=== PATIENT | female | born 1955 | race Caucasian/White ===

== ENCOUNTER 2017-09-15 16:28 | Emergency (ER) | payer BC ==
[~2017-09-15] VITALS: Ht 15.2 cm; Wt 60.8 kg
[~2017-09-15 16:28] MED LIST: AZEL137S NS; CELE-1 PO; CETI-176 PO; CHOL200074 PO; CITA-156 PO; LAN15 PO; MELO-205 PO; METF-407 PO; METF-410 PO; MOBIC; NOR25 PO; RANI-315 PO; SIMV-49 PO; VITA-175 PO
[2017-09-15] MEDS ORDERED: OMEP40CA48 PO (16:44)
[2017-09-15] MEDS ORDERED: METF-410 PO (16:45)
[2017-09-15] MEDS ORDERED: ASPIRIN 81 MG CHEW PO ONE (16:45)
[2017-09-15] MEDS ORDERED: MELO-149 PO (16:50)
[2017-09-15 16:55] LABS: PLATELET COUNT, AUTOMATED 292 K/uL (150-450)
--- NOTE | 2017-09-15 17:00 | ER Report ---
History and Physical Time Seen By MD: 16:40 Hx. of Stated Complaint: PT REPORTS A 5 MINUTE EPISODE OF EPIGASTRIC PAIN WITH DIAPHORESIS AND NAUSEA, WENT TO URGENT CARE AND THEY REPORT AN "ABNORMAL EKG" ACCORDING TO PT, CURRENTLY FEELS FINE HPI/ROS CHIEF COMPLAINT: Chest/abdominal pain HISTORY OF PRESENT ILLNESS: Patient is a 61-year-old female who presents the ED with complaint of chest/abdominal pain that she noticed about 3 hours ago. She states that this came on suddenly while she was getting food from a [employer] restaurant and she states she had it while she was driving to her son's house but then shortly after resolved. She states the entire episode lasted about 10- 15 minutes. She describes the pain as a sharp pain that did not radiate to her arms or jaw. She states that she did have some sweating and some nausea with this. She denies any vomiting, diarrhea, constipation. She denies any shortness of breath. She states that she does not have any history of heart or lung issues. She was seen at a local urgent care who advised her to go to the emergency room for further evaluation. REVIEW OF SYSTEMS: Constitutional: No fever, no chills. Eyes: No discharge. ENT: No sore throat. Cardiovascular: See history of present illness. No palpitations. Respiratory: See history of present illness. No cough. Gastrointestinal: See history of present illness. Genitourinary: No hematuria. Musculoskeletal: No back pain. Skin: No rashes. Neurological: No headache. Allergies: Coded Allergies: ampicillin (Verified Allergy, Intermediate, RASH, 07/30/17) Adhesive Bandage (Verified Allergy, Mild, RASH, 07/30/17) Uncoded Allergies: SOME PROBLEM WITH EPINEPHRINE (Adverse Reaction, Unknown, 10/30/13) Home Meds Active Scripts Azelastine Hcl (AZELASTINE HCL) 137 Mcg/0.137 Ml [place].pump, 2 SPRAYS NS BID for 30 Days, #1 BOT Prov:WILFRIDO CHAMPION JR, MD 07/29/17 Reported Medications Meloxicam (MOBIC) 7.5 Mg Tablet, PO QDAY 09/15/17 Metformin Hcl (METFORMIN HCL) 500 Mg Tablet, 1 TAB PO QDAY, TAB 09/15/17 Omeprazole (OMEPRAZOLE) 40 Mg Capsule.dr, 40 MG PO QDAY, CAP 09/15/17 Citalopram Hydrobromide (CELEXA) 20 Mg Tablet, 20 MG PO QDAY, #5 TAB 07/30/17 Meloxicam (MELOXICAM) 7.5 Mg Tablet, 7.5 MG PO QDAY 07/30/17 Cholecalciferol (Vitamin D3) (VITAMIN D-3) 2,000 Unit Capsule, 8000 UNIT PO DAILY, CAPSULE 07/30/17 Cetirizine Hcl (ZYRTEC) 10 Mg Tablet, 10 MG PO QDAY, TAB 07/30/17 Discontinued Reported Medications Simvastatin (SIMVASTATIN) 20 Mg Tablet, 20 MG PO HS, TAB 07/30/17 Metformin Hcl (METFORMIN HCL) 500 Mg Tablet, 1 TAB PO QDAY, TAB 07/30/17 Vitamin B Complex (B COMPLEX) 1 Each Tablet, 1 EACH PO DAILY 07/30/17 Reviewed Nurses Notes: Yes Old Medical Records Reviewed: Yes Hx Smoking: Yes Smoking Status: Former Smoker Constitutional Vital Sign - Last 24 Hours 09/15/17 09/15/17 09/15/17 09/15/17 16:28 16:33 16:33 16:43 Temp 98.9 Pulse ??? 82 76 Resp 18 9 B/P (MAP) 141/87 (105) 141/87 Pulse Ox 97 100 O2 Delivery Room Air 09/15/17 16:58 Pulse 71 Resp 15 Pulse Ox 96 Physical Exam General Appearance: The patient is alert, has no immediate need for airway protection and no signs of toxicity. Patient appears to be no acute distress. Eyes: Pupils equal and round no pallor or injection. ENT, Mouth: Mucous membranes are moist. Respiratory: There are no retractions, lungs are clear to auscultation. Cardiovascular: Regular rate and rhythm. Gastrointestinal: Abdomen is soft and non tender, no masses, bowel sounds normal. Skin: Warm and dry, no rashes. Musculoskeletal: Neck is supple non tender. Extremities are nontender, nonswollen and have full range of motion. DIFFERENTIAL DIAGNOSIS: After history and physical exam differential diagnosis was considered for chest pain including but not limited to myocardial ischemia, pericarditis pulmonary embolus, chest wall pain, pleural inflammation and pulmonary infectious causes. Medical Decision Making Data Points Result Diagram: 09/15/17 1639 09/15/17 1639 Laboratory Hematology Test 09/15/17 16:39 Red Blood Count 4.39 M/uL (4.17-5.56) Mean Corpuscular Volume 94.9 fL (80.0-96.0) Mean Corpuscular Hemoglobin 33.0 pg (26.0-33.0) Mean Corpuscular Hemoglobin Concent 34.8 g/dL (32.0-36.0) Red Cell Distribution Width 13.3 % (11.5-14.5) Mean Platelet Volume 9.0 fL (7.2-11.1) Neutrophils (%) (Auto) 75.3 % (39.4-72.5) Lymphocytes (%) (Auto) 19.6 % (17.6-49.6) Monocytes (%) (Auto) 4.4 % (4.1-12.4) Eosinophils (%) (Auto) 0.7 % (0.4-6.7) Basophils (%) (Auto) 0.0 % (0.3-1.4) Nucleated RBC Relative Count (auto) 0.0 /100WBC Neutrophils # (Auto) 6.3 K/uL (2.0-7.4) Lymphocytes # (Auto) 1.7 K/uL (1.3-3.6) Monocytes # (Auto) 0.4 K/uL (0.3-1.0) Eosinophils # (Auto) 0.1 K/uL (0.0-0.5) Basophils # (Auto) 0.0 K/uL (0.0-0.1) Nucleated RBC Absolute Count (auto) 0.00 K/uL Peripheral Blood Smear Yes Y/N Sodium Level 138 mmol/L (137-145) Potassium Level 3.8 mmol/L (3.5-5.0) Chloride Level 100 mmol/L (98-107) Carbon Dioxide Level 29 mmol/L (22-31) Blood Urea Nitrogen 16 mg/dl (7-18) Creatinine 0.80 mg/dl (0.52-1.04) Glomerular Filtration Rate Calc > 60.0 Random Glucose 103 mg/dl (75-110) Calcium Level 9.7 mg/dl (8.4-10.2) Total Bilirubin 0.7 mg/dl (0.2-1.3) Aspartate Amino Transf (AST/SGOT) 35 U/L (0-35) Alanine Aminotransferase (ALT/SGPT) 52 U/L (0-56) Alkaline Phosphatase 78 U/L (0-126) Troponin I < 0.012 ng/ml Total Protein 7.5 gm/dl (6.3-8.2) Albumin 4.6 g/dl (3.5-5.0) Lipase 139 U/L (23-300) Chemistry Test 09/15/17 16:39 White Blood Count 8.4 k/uL (4.5-11.0) Red Blood Count 4.39 M/uL (4.17-5.56) Hemoglobin 14.5 g/dL (12.0-16.0) Hematocrit 41.6 % (34.0-47.0) Mean Corpuscular Volume 94.9 fL (80.0-96.0) Mean Corpuscular Hemoglobin 33.0 pg (26.0-33.0) Mean Corpuscular Hemoglobin Concent 34.8 g/dL (32.0-36.0) Red Cell Distribution Width 13.3 % (11.5-14.5) Platelet Count 292 K/uL (150-450) Mean Platelet Volume 9.0 fL (7.2-11.1) Neutrophils (%) (Auto) 75.3 % (39.4-72.5) Lymphocytes (%) (Auto) 19.6 % (17.6-49.6) Monocytes (%) (Auto) 4.4 % (4.1-12.4) Eosinophils (%) (Auto) 0.7 % (0.4-6.7) Basophils (%) (Auto) 0.0 % (0.3-1.4) Nucleated RBC Relative Count (auto) 0.0 /100WBC Neutrophils # (Auto) 6.3 K/uL (2.0-7.4) Lymphocytes # (Auto) 1.7 K/uL (1.3-3.6) Monocytes # (Auto) 0.4 K/uL (0.3-1.0) Eosinophils # (Auto) 0.1 K/uL (0.0-0.5) Basophils # (Auto) 0.0 K/uL (0.0-0.1) Nucleated RBC Absolute Count (auto) 0.00 K/uL Peripheral Blood Smear Yes Y/N Glomerular Filtration Rate Calc > 60.0 Calcium Level 9.7 mg/dl (8.4-10.2) Total Bilirubin 0.7 mg/dl (0.2-1.3) Aspartate Amino Transf (AST/SGOT) 35 U/L (0-35) Alanine Aminotransferase (ALT/SGPT) 52 U/L (0-56) Alkaline Phosphatase 78 U/L (0-126) Troponin I < 0.012 ng/ml Total Protein 7.5 gm/dl (6.3-8.2) Albumin 4.6 g/dl (3.5-5.0) Lipase 139 U/L (23-300) EKG/Imaging EKG Interpretation 12 lead EKG: Rhythm: Normal sinus rhythm, right bundle branch block, rate 67 bpm QRS: normal ST segments: No acute ST changes identified. Compared EKG from 2004 and 2008 and patient appears to have a right bundle- branch pattern and these EKGs as well. Monitor Interpretation: Normal Sinus Rhythm Imaging CXR: IMPRESSION: Unchanged chest with no evidence of acute cardiopulmonary disease. Report Dictated By: Lee Aguilar MD at 09/15/2017 5:18 PM Report E-Signed By: Lee Aguilar MD at 09/15/2017 5:19 PM ED Course/Re-evaluation ED Course Will obtain labs, EKG, chest x-ray. 09/15/2017 5:52:10 pm - distal labs, EKG, chest x-ray with patient. Everything is essentially normal. Her EKG is essentially unchanged from her previous in 2008. Patient has been pain free throughout entire ER visit. Decision to Disposition Date: Sep 15, 2017 Decision to Disposition Time: 17:52 Depart Departure Latest Vital Signs Vital Signs Date Time Temp Pulse Resp B/P (MAP) Pulse Ox O2 Delivery O2 Flow Rate FiO2 09/15/17 16:58 71 15 96 09/15/17 16:33 98.9 141/87 Room Air Impression: Primary Impression: Epigastric pain Additional Impression: Chest pain Condition: Improved Disposition: HOME OR SELF-CARE Referrals: DUARTE AL PA-C (PCP) Patient Instructions: Chest Pain (ED), Epigastric Pain (ED) Additional Instructions: Stay well-hydrated. Follow-up with her primary care provider in 2-3 days. If having any worsening or concerning symptoms may return to the emergency department. Problem Qualifiers Additional Impression: Chest pain Chest pain type: unspecified Qualified Codes: R07.9 - Chest pain, unspecified BJORE,JESSICA R PA-C Sep 15, 2017 17:00
--- NOTE | 2017-09-15 17:02 | EKG ---
[place] [facility] [place]IENT NAME: FOUZIA ARREGUIN : [id number] MR: [id number] V: [id number] EXAM DATE: ORDERING PHYSICIAN: JESSICA WREN TECHNOLOGIST: Brent Grant Reason : Blood Pressure : / mmHG Vent. Rate : 067 BPM Atrial Rate : 067 BPM P-R Int : 174 ms QRS Dur : 122 ms QT Int : 404 ms P-R-T Axes : 074 073 054 degrees QTc Int : 426 ms Normal sinus rhythm Possible Left atrial enlargement Right bundle branch block Abnormal ECG No previous ECGs available Confirmed by ANGELINA REYES ([id number]) on 09/16/2017 6:42:09 AM Referred By: Confirmed By:ANGELINA REYES
--- NOTE | 2017-09-15 17:23 | RADIOLOGY IMAGING REPORT ---
FACILITY: [facility] PATIENT NAME: Jonah Carney : 1955 MR: [id number] V: [id number] EXAM DATE: ORDERING PHYSICIAN: JESSICA WREN TECHNOLOGIST: [place] [facility] [place] Patient: Jonah Carney : 1955 Visit/Account:[id number] Date of Sevice: 09/15/2017 Examination: CHEST SINGLE AP Comparison: 01/12/2015 History: Chest pain. Findings: Cardiac and hilar contour size is within normal limits. No consolidation, nodule, or peribr onchial inflammation. No pneumothorax, edema, or effusion. Osseous structures are intact. IMPRESSION: Unchanged chest with no evidence of acute cardiopulmonary disease. Report Dictated By: Lee Aguilar MD at 09/15/2017 5:18 PM Report E-Signed By: Lee Aguilar MD at 09/15/2017 5:19 PM WSN:[id number]
[2017-09-15 18:00] VITALS: BP 128/89
== END 2017-09-15 18:07 | disposition home or self-care (01) ==
LOC: ER 16:41
DX: R10.13 Epigastric pain (principal); R07.89 Other chest pain
CPT/HCPCS: 71045; 82040; 82247; 82310; 82374; 82435; 82565; 82947; 83690; 84075; 84132; 84155; 84295; 84450; 84460; 84484; 84520; 85025; 93005; 99284

== ENCOUNTER → 2017-11-15 | Outpatient (CLI) | payer BC ==
[~2017-11-15] MED LIST changes: +MELO-149 PO; +OMEP40CA48 PO
--- NOTE | 2017-11-15 15:28 | RADIOLOGY IMAGING REPORT ---
FACILITY: [facility] PATIENT NAME: FOUZIA ARREGUIN : [id number] MR: [id number] V: [id number] EXAM DATE: [id number] ORDERING PHYSICIAN: DUARTE AL TECHNOLOGIST: Earnestine Banerjee PROCEDURE:BILATERAL DIGITAL SCREENING MAMMOGRAM WITH CAD ASSISTED INTERPRETATION & 3D TOMOSYNTHESIS COMPARISON:Prior mammograms 10/01/16, 12/21/15, 09/23/14, 09/22/13, 09/18/12 INDICATIONS:screening FINDINGS: There are bilateral subpectoral breast implants in place. There is a moderate amount of fibroglandular tissue anterior to the implants .There is no evidence of implant rupture or leakage. On the Left CC implant displacement view there is a focal area of increased density Zone 3just posterior to mid nipple line which is partially seen on the 2015 mammogram not identified on the prior mammograms. Spot compression view is recommended for further evaluation. DIAGNOSTIC CATEGORY 0--INCOMPLETE: NEED ADDITIONAL IMAGING EVALUATION. RECOMMENDATIONS: ADDITIONAL MAMMOGRAPHIC VIEWS REQUIRED: LEFT BREAST. IMPRESSION: BIRADS 0: Incomplete Additional views Left breast recommended as described. Dictated by: Lis Carson M.D. on 11/15/2017 at 15:13 Transcribed by: SHARON on 11/15/2017 at 15:23 Approved by: Lis Carson M.D. on 11/15/2017 at 15:26 [facility]
== END ==
LOC: MAMO 01:01
PROVIDERS: ATTEND Physician Assistant
DX: Z12.31 Encounter for screening mammogram for malignant neoplasm of breast (principal); R92.8 Other abnormal and inconclusive findings on diagnostic imaging of breast
CPT/HCPCS: 77063; 77067

== ENCOUNTER → 2017-11-19 | Outpatient (CLI) | payer BC ==
--- NOTE | 2017-11-19 16:42 | RADIOLOGY IMAGING REPORT ---
[place] [facility] [place] NAME: FOUZIA ARREGUIN : [id number] MR: [id number] V: [id number] EXAM DATE: ORDERING PHYSICIAN: DUARTE AL TECHNOLOGIST: Earnestine Banerjee PROCEDURE:LEFT DIGITAL DIAGNOSTIC MAMMOGRAM COMPARISON:None. TECHNIQUE:Left full ML 3D & Left CC spot compression 3D view was performed. INDICATIONS:further eval/62 yr old female called back for an asymmetry in the Left breast seen on the CC implant displaced view. FINDINGS: The asymmetry in the central Left breast seen on the CC view does not persist on additional imaging & likely represents overlapping normal fibroglandular tissue. No dominant mass or suspicious microcalcifications. IAGNOSTIC CATEGORY 1--NEGATIVE. RECOMMENDATIONS: ROUTINE MAMMOGRAM AND CLINICAL EVALUATION. IMPRESSION: BIRADS 1: Negative. Recommend the patient resume screening mammography in 1 year. Dictated by: Gerard Bhagat M.D. on 11/19/2017 at 14:41 Transcribed by: RACHELLE on 11/19/2017 at 14:58 Approved by: Gerard Bhagat M.D. on 11/19/2017 at 16:40 [facility]
== END ==
LOC: MAMO 01:57
PROVIDERS: ATTEND Physician Assistant
DX: R92.2 Inconclusive mammogram (principal)
CPT/HCPCS: 77065

== ENCOUNTER → 2018-02-03 | Outpatient (CLI) | payer BC ==
[~2018-02-03] MED LIST changes: -METF-410 PO; +METF-411 PO
== END ==
LOC: AUD 14:00
PROVIDERS: ATTEND Otolaryngology
DX: H90.41 Sensorineural hearing loss, unilateral, right ear, with unrestricted hearing on the contralateral side (principal)
CPT/HCPCS: 92557; 92570

== ENCOUNTER → 2018-05-02 | Outpatient (CLI) | payer BC ==
--- NOTE | 2018-05-02 14:12 | RADIOLOGY IMAGING REPORT ---
FACILITY: [facility] PATIENT NAME: Jonah Carney : 1955 MR: [id number] V: [id number] EXAM DATE: ORDERING PHYSICIAN: JOSÉ MIGUEL GU TECHNOLOGIST: Location: [facility] Patient: Jonah Carney : 1955 Visit/Account:[id number] Date of Sevice: 05/02/2018 DEXA Scan HISTORY: Osteoporosis screening. COMPARISON: 12/20/2003. LUMBAR SPINE: The bone mineral density (BMD) measured from L1-L3 correlates with a Z-score 0.4 and a T-score of -1 which is osteopenia as defined by the World Health Organization. The corresponding risk of fracture in the lumbar spine is increased compared with a young adult reference population. This value has d ecreased by 9.7 % since the prior study. More than 5% change is considered significant. HIP: Bone mineral density (BMD) measured in the Left total hip region correlates with a Z-score -1.2 and a T-score of -2.2 which is osteopenia as defined by the World Health Organization. The corresponding risk of fracture in the hip is increased compared with a young adult reference population. This value has decreased by 18.9 % since the prior study. More than 5% change is considered significant. Bone mineral density (BMD) measured in the Femoral Neck region measures 0.712 g/cm2 is in the osteope maricruz range. IMPRESSION: 1. Lumbar spine: Osteopenia. Lumbar bone mineral density has significantly decreased compared to pr ior. 2. Left Total Hip: Osteopenia. Left hip bone mineral density has significantly decreased compared to prior. 3. Femoral Neck: Bone Mineral Density is 0.712 g/cm2 The next DEXA scan of this patient should include the following sites: L1-L3 and the left hip. FRAX? WHO Fracture Risk Assessment Tool link: <http://www.shef.ac.uk/FRAX/tool.jsp?[email or web address]> PLEASE NOTE: 1) The World Health Organization defines low BMD as follows: T-score Normal > -1 Osteopenia < -1 and > -2.5 Osteoporosis < -2.5 without fractures Established osteoporosis < -2.5 with fractures 2) In general, you may wish to consider: Diagnosis Treatment Follow-up DEXA Normal BMD Prevention 2-3 years Osteopenia Prevention/therapy 1-2 years Osteoporosis Therapy Yearly 3) Fracture risk estimated from the T-score is more accurate for vertebral fractures (often spontane ous) than for hip fractures. Report Dictated By: Gilson Shin MD at 05/02/2018 2:06 PM Report E-Signed By: Gilson Shin MD at 05/02/2018 2:08 PM DAXN:[email or web address]
== END ==
LOC: RAD 04:50
PROVIDERS: ATTEND Physician Assistant Medical
DX: M85.80 Other specified disorders of bone density and structure, unspecified site (principal)
CPT/HCPCS: 77080

== ENCOUNTER 2018-06-28 18:09 | Emergency (ER) | payer BC ==
[~2018-06-28 18:09] MED LIST changes: -METF-411 PO; +METF-450 PO
[2018-06-28 18:17] VITALS: BP 170/93
--- NOTE | 2018-06-28 18:19 | ER Report ---
History and Physical Time Seen By MD: 18:12 HPI/ROS CHIEF COMPLAINT: Bilateral hand swelling HISTORY OF PRESENT ILLNESS: 62-year-old female presents with bilateral bruising to the dorsums of her hands. She apparently had blood drawn from the back of both of her hands. It appears that she has large hematomas on the back of her hands. There is no warmth to the area. Patient given stressful range of motion of all digits. Allergies: Coded Allergies: ampicillin (Verified Allergy, Intermediate, RASH, 07/30/17) Adhesive Bandage (Verified Allergy, Mild, RASH, 07/30/17) Uncoded Allergies: SOME PROBLEM WITH EPINEPHRINE (Adverse Reaction, Unknown, 10/30/13) Home Meds Active Scripts Azelastine Hcl 0.1% [place] (AZELASTINE HCL 0.1% SPRAY) 137 Mcg/0.137 Ml [place].pump, 2 SPRAYS NS BID for 30 Days, #1 BOT 11 Refills Prov:WILFRIDO CHAMPION JR, MD 01/28/18 Reported Medications Meloxicam (MOBIC) 7.5 Mg Tablet, PO QDAY 09/15/17 Metformin Hcl (METFORMIN HCL) 500 Mg Tablet, 1 TAB PO QDAY, TAB 09/15/17 Omeprazole (OMEPRAZOLE) 40 Mg Capsule.dr, 40 MG PO QDAY, CAP 09/15/17 Citalopram Hydrobromide (CELEXA) 20 Mg Tablet, 20 MG PO QDAY, #5 TAB 07/30/17 Meloxicam (MELOXICAM) 7.5 Mg Tablet, 7.5 MG PO QDAY 07/30/17 Cholecalciferol (Vitamin D3) (VITAMIN D-3) 2,000 Unit Capsule, 8000 UNIT PO DAILY, CAPSULE 07/30/17 Cetirizine Hcl (ZYRTEC) 10 Mg Tablet, 10 MG PO QDAY, TAB 07/30/17 Past Medical/Surgical History GERD, allergies, type II diabetes, arthritis Hx Smoking: Yes Smoking Status: Former Smoker Constitutional Vital Sign - Last 24 Hours 06/28/18 18:17 Temp 98.6 Pulse 97 Resp 18 B/P (MAP) 170/93 Pulse Ox 94 O2 Delivery Room Air Physical Exam General appearance: Alert no distress. Respiratory: Chest is non tender, lungs are clear to auscultation. Cardiac: Regular rate and rhythm Extremities: Bilateral hands are neurovascularly intact. There is ecchymosis consistent with venipuncture on the dorsal aspect of each hand. Is no warmth, no tenderness to suggest cellulitis. DIFFERENTIAL DIAGNOSIS: After history and physical exam differential diagnosis was considered for hematoma, cellulitis, ecchymosis Medical Decision Making ED Course/Re-evaluation ED Course Patient was admitted to an examination room. H&P was done. The differential diagnoses was considered. On clinical examination. Patient has bilateral hematomas on the dorsal aspects of her hand where venipuncture was attempted. She likely suffered puncture of the posterior wall and had continued oozing. She has bilateral hematomas of the subcutaneous tissue of her hands on the dorsal aspect. She is advised conservative treatment, ibuprofen, hot compresses to help resorption of the blood. Decision to Disposition Date: Jun 28, 2018 Decision to Disposition Time: 18:17 Depart Departure Latest Vital Signs Vital Signs Date Time Temp Pulse Resp B/P (MAP) Pulse Ox O2 Delivery O2 Flow Rate FiO2 06/28/18 18:17 98.6 97 18 170/93 94 Room Air Impression: Primary Impression: Traumatic hematoma of hand Condition: Improved Disposition: HOME OR SELF-CARE Referrals: DUARTE AL PA-C (PCP) Patient Instructions: Hematoma (ED) Additional Instructions: Apply heating pads to the affected area to help resorb the blood Continue taking your meloxicam You may add some Tylenol for additional pain relief if necessary All other with your primary care if unimproved in 5-7 days Problem Qualifiers Primary Impression: Traumatic hematoma of hand Encounter type: initial encounter Laterality: unspecified laterality Qualified Codes: S60.229A - Contusion of unspecified hand, initial encounter EVIE VILLARREAL DO Jun 28, 2018 18:19
== END 2018-06-28 18:32 | disposition home or self-care (01) ==
LOC: ER 18:12
DX: S60.222A Contusion of left hand, initial encounter (principal); S60.221A Contusion of right hand, initial encounter
CPT/HCPCS: 99282

== ENCOUNTER 2018-10-05 17:32 | Emergency (ER) | payer BC ==
--- NOTE | 2018-10-05 17:36 | ER Report ---
History and Physical Time Seen By MD: 17:36 HPI/ROS CHIEF COMPLAINT: Pressure behind right eye HISTORY OF PRESENT ILLNESS: This is a 62-year-old female who presents to the emergency department for pressure behind her right eye. The patient states that she has had increased pressure in her eyes, more so in the right than the left. She had pressures checked last week by her sewer builder, the right eye was noted to have a pressure of 19.5. The left one was around 12. The patient is a high risk for acute angle glaucoma, she's had surgery to help prevent the development of glaucoma. She has no visual changes tonight, no narrowing of visual marte, no changes in vision, no loss of vision. Patient is very anxious about the pressure on the right side. She also has pain to her forehead. She denies fevers or chills. No rashes. No chest pain or shortness of breath. No numbness or tingling. No facial droop or neurologic deficits. REVIEW OF SYSTEMS: Constitutional: No fever, no chills. Eyes: As above. ENT: No sore throat. Cardiovascular: No chest pain, no palpitations. Respiratory: No cough, no shortness of breath. Gastrointestinal: No abdominal pain, no vomiting. Genitourinary: No hematuria. Musculoskeletal: No back pain. Skin: No rashes. Neurological: As above. Allergies: Coded Allergies: ampicillin (Verified Allergy, Intermediate, RASH, 07/30/17) Adhesive Bandage (Verified Allergy, Mild, RASH, 07/30/17) Uncoded Allergies: SOME PROBLEM WITH EPINEPHRINE (Adverse Reaction, Unknown, 10/30/13) Home Meds Reported Medications Simvastatin (SIMVASTATIN) 20 Mg Tablet, 20 MG PO HS, TAB 10/05/18 Citalopram Hydrobromide (CELEXA) 20 Mg Tablet, 20 MG PO QDAY, #5 TAB 07/30/17 Meloxicam (MELOXICAM) 7.5 Mg Tablet, 7.5 MG PO QDAY 07/30/17 Cholecalciferol (Vitamin D3) (VITAMIN D-3) 2,000 Unit Capsule, 8000 UNIT PO DAILY, CAPSULE 07/30/17 Cetirizine Hcl (ZYRTEC) 10 Mg Tablet, 10 MG PO QDAY, TAB 07/30/17 Discontinued Reported Medications Meloxicam (MOBIC) 7.5 Mg Tablet, PO QDAY 09/15/17 Metformin Hcl (METFORMIN HCL) 500 Mg Tablet, 1 TAB PO QDAY, TAB 09/15/17 Omeprazole (OMEPRAZOLE) 40 Mg Capsule.dr, 40 MG PO QDAY, CAP 09/15/17 Discontinued Scripts Azelastine Hcl 0.1% Catherine (AZELASTINE HCL 0.1% SPRAY) 137 Mcg/0.137 Ml Catherine.pump, 2 SPRAYS NS BID for 30 Days, #1 BOT 11 Refills Prov:WILFRIDO CHAMPION JR, MD 01/28/18 Past Medical/Surgical History The patient has a past medical and surgical history of 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 Reviewed Nurses Notes: Yes Hx Smoking: Yes Smoking Status: Former Smoker Constitutional Vital Sign - Last 24 Hours 10/05/18 10/05/18 10/05/18 10/05/18 17:32 17:37 17:38 17:47 Temp 97.8 Pulse ??? 69 71 Resp 16 B/P (MAP) 128/77 128/77 (94) Pulse Ox 92 92 O2 Delivery Room Air Physical Exam General Appearance: The patient is alert, has no immediate need for airway protection and no signs of toxicity. Eyes: Pupils equal and round no pallor or injection. Pressures in the eyes using the schiotz tonometer left eye pressure 14.6, right eye pressure 17.3. Visual acuity with right eye 20/25, left eye 20/20, both eyes 20/20. ENT, Mouth: Mucous membranes are moist. Respiratory: There are no retractions, lungs are clear to auscultation. Cardiovascular: Regular rate and rhythm. Gastrointestinal: Abdomen is soft and non tender, no masses, bowel sounds normal. Neurological: Alert and oriented 4. Moving all extremities. Following all commands. No focal neuro deficits. Skin: Warm and dry, no rashes. Musculoskeletal: Neck is supple non tender. Extremities are nontender, nonswollen and have full range of motion. DIFFERENTIAL DIAGNOSIS: After history and physical exam differential diagnosis was considered for glaucoma, sinusitis, tumor, intracranial bleed. Medical Decision Making EKG/Imaging Imaging Location: [facility] Patient: Jonah Carney : 1955 Visit/Account:[id number] Date of Sevice: 10/05/2018 EXAMINATION: CT of the Paranasal Sinuses HISTORY: Forehead pressure. Pressure behind the right eye. Worse today. TECHNIQUE: Contiguous axial images were obtained through the paranasal sinuses without intravenous contrast administration. Coronal and sagittal reformatted i mages were obtained from the axial source data. One of the following dose optimization techniques was utilized in the performanc e of this exam: Automated exposure control; adjustment of the mA and/or kV according to the patient's size; or use of an iterative reconstruction technique. Specific details can be referenced in the facility's radiology CT exam operational policy. COMPARISON: None. FINDINGS: Sinuses show no appreciable mucosal thickening or fluid. The estimated complexes appear to be patent. Mild rightward deviation nasal septum. There are no fractures or bony lesions. Soft tissues of the orbits are symmetric and normal without focal abnormality. Temporomandibular joints are intact and symmetric. Visualized brain is unremarkable. Mild bilateral internal carotid artery calcifications. The retropharyngeal soft tissues are normal. Surrounding soft tissues are unremarkable. IMPRESSION: 1. Clear sinuses. 2. Mild rightward deviation nasal septum. Report Dictated By: Gerard Nielson at 10/05/2018 6:38 PM Report E-Signed By: Gerard Nielson at 10/05/2018 6:43 PM WSN:[id number] Location: [facility] Patient: Jonah Carney : 1955 Visit/Account:[id number] Date of Sevice: 10/05/2018 CT Head without contrast Indication: Forehead pressure. Pressure behind right eye. Worse today. Comparison: None available Technique: Axial CT images were obtained through the brain from the skull base to the vertex without administration of IV contrast. Reformatted coronal and sagittal images were also obtained. One of the following dose optimization techniques was utilized in the performance of this exam: automated exposure control; adjustment of the mA and/or kV according to the patient's size; or use of an iterative reconstruction technique. Specific details can be referenced in the facility's radiology CT exam operational policy. Findings: No evidence of mass, mass effect, or midline shift. No acute intracranial hemorrhage or acute territorial infarction. No extra-axial fluid collection or hydrocephalus. No abnormal density. Corley/white matter differentiation appears normal. The visualized orbits are unremarkable. Bony structures show no fractures or lesions. Mild bilateral internal carotid artery calcifications. Mild rightward deviation nasal septum. The visualized paranasal sinuses and mastoid air cells are clear. IMPRESSION: 1. No acute or focal abnormality. Report Dictated By: Gerard Nielson at 10/05/2018 6:33 PM Report E-Signed By: Gerard Nielson at 10/05/2018 6:38 PM WSN:[id number] ED Course/Re-evaluation ED Course The patient was admitted to room. A history and physical were obtained. Differential diagnoses were considered. A CT of the head and sinuses were negat olivia for any acute abnormalities. I reviewed these results with the patient, she was relieved. I exam revealed no obvious or concerning findings, I did use proparacaine prior to checking Pressures in the eyes using the schiotz tonometer left eye pressure 14.6, right eye pressure 17.3. Visual acuity with right eye 20/25, left eye 20/20, both eyes 20/20. There were no obvious or concerning findings on exam, the patient denied any visual disturbances or changes. I did review the results with the patient, she was relieved. I did tell the patient that she does need follow-up with her sewer builder tomorrow for reevaluation, return to the ER for any other concerns or worsening symptoms. The patient expressed understanding, was in agreement with this plan of care and discharged home. Decision to Disposition Date: Oct 05, 2018 Decision to Disposition Time: 18:59 Depart Departure Latest Vital Signs Vital Signs Date Time Temp Pulse Resp B/P (MAP) Pulse Ox O2 Delivery O2 Flow Rate FiO2 10/05/18 17:47 71 92 10/05/18 17:38 128/77 (94) 10/05/18 17:37 97.8 16 Room Air Impression: Primary Impression: Eye pressure Condition: Improved Disposition: HOME OR SELF-CARE Referrals: DUARTE AL PA-C (PCP) 5 Days MYCHAL,KATTY OD LOWE,VON OD Patient Instructions: Eye Pain (ED) Additional Instructions: No concerning findings on the CT of the brain or sinuses today. Your eye pressures are within normal limits today. Although there were no concerning findings today, I want you to follow up with Opthamology tomorrow for reevaluation. Drink plenty of water. Get plenty of rest. Return to the ED for any other concerns or worsening symptoms. Follow up with your PCP in 5 days. JOHN PETERSON LAUNDRY FOLDER-BC Oct 05, 2018 17:36
[2018-10-05 17:38] VITALS: BP 128/77
[2018-10-05] MEDS ORDERED: PROPARACAINE 0.5% OP 15ML BTL OU ONE (17:50)
[2018-10-05] MEDS ORDERED: SIMV-49 PO (17:53)
--- NOTE | 2018-10-05 18:41 | RADIOLOGY IMAGING REPORT ---
FACILITY: [facility] - [place] PATIENT NAME: Jonah Carney : 1955 MR: [id number] V: [id number] EXAM DATE: ORDERING PHYSICIAN: JOHN PETERSON TECHNOLOGIST: [place] [facility] [place] Patient: Jonah Carney : 1955 Visit/Account:[id number] Date of Sevice: 10/05/2018 CT Head without contrast Indication: Forehead pressure. Pressure behind right eye. Worse today. Comparison: None available Technique: Axial CT images were obtained through the brain from the skull base to the vertex without administration of IV contrast. Reformatted coronal and sagittal images were also obtained. One of the following dose optimization techniques was utilized in the performance of this exam: autom ated exposure control; adjustment of the mA and/or kV according to the patient's size; or use of an i terative reconstruction technique. Specific details can be referenced in the facility's radiology CT exam operational policy. Findings: No evidence of mass, mass effect, or midline shift. No acute intracranial hemorrhage or acute territorial infarction. No extra-axial fluid collection or hydrocephalus. No abnormal density. Corley/white matter differentiat ion appears normal. The visualized orbits are unremarkable. Bony structures show no fractures or lesions. Mild bilateral internal carotid artery calcifications. Mild rightward deviation nasal septum. The visualized paranasal sinuses and mastoid air cells are clear. IMPRESSION: 1. No acute or focal abnormality. Report Dictated By: Gerard Nielson at 10/05/2018 6:33 PM Report E-Signed By: Gerard Nielson at 10/05/2018 6:38 PM WSN:[id number]
--- NOTE | 2018-10-05 18:46 | RADIOLOGY IMAGING REPORT ---
[place] [facility] [place]IENT NAME: Jonah Carney : 1955 MR: [id number] V: [id number] EXAM DATE: ORDERING PHYSICIAN: JOHN PETEROSN TECHNOLOGIST: Location: [facility] [place] Patient: Jonah Carney : 1955 Visit/Account:[id number] Date of Sevice: 10/05/2018 EXAMINATION: CT of the Paranasal Sinuses HISTORY: Forehead pressure. Pressure behind the right eye. Worse today. TECHNIQUE: Contiguous axial images were obtained through the paranasal sinuses without intravenous c ontrast administration. Coronal and sagittal reformatted images were obtained from the axial source d shey. One of the following dose optimization techniques was utilized in the performance of this exam: Autom ated exposure control; adjustment of the mA and/or kV according to the patient's size; or use of an i terative reconstruction technique. Specific details can be referenced in the facility's radiology C T exam operational policy. COMPARISON: None. FINDINGS: Sinuses show no appreciable mucosal thickening or fluid. The estimated complexes appear to be patent. Mild rightward deviation nasal septum. There are no fractures or bony lesions. Soft tissues of the o rbits are symmetric and normal without focal abnormality. Temporomandibular joints are intact and sym metric. Visualized brain is unremarkable. Mild bilateral internal carotid artery calcifications. The retropharyngeal soft tissues are normal. Surrounding soft tissues are unremarkable. IMPRESSION: 1. Clear sinuses. 2. Mild rightward deviation nasal septum. Report Dictated By: Gerard Nielson at 10/05/2018 6:38 PM Report E-Signed By: Gerard Nielson at 10/05/2018 6:43 PM WSN:[id number]
== END 2018-10-05 19:00 | disposition home or self-care (01) ==
LOC: ER 17:37
DX: H57.11 Ocular pain, right eye (principal)
CPT/HCPCS: 70450; 70486; 99284

== ENCOUNTER 2018-12-05 16:39 | Emergency (ER) | payer BC ==
[2018-12-05] MEDS ORDERED: ASPIRIN 81 MG CHEW PO ONE (16:55)
[2018-12-05 17:07] LABS: PLATELET COUNT, AUTOMATED 311 K/uL (150-450)
--- NOTE | 2018-12-05 17:07 | ER Report ---
History and Physical Time Seen By MD: 16:50 Hx. of Stated Complaint: patient reports intermittant chest pain for the last 3 days (JAQUELIN COHN DO) HPI/ROS CHIEF COMPLAINT: chest pain HISTORY OF PRESENT ILLNESS: Pt states that Saturday and Saturday has had episodes of chest pain that are both sharp and pressure like. Sharp pain is stabbing and lasts a few second and goes away. The pressure varies. no sob. no diaphoresis. Can happen at rest or with exertion. Seemed to go away on but returned today. Pain today has been constant since 230-3pm. Pt was told by friends to get her heart checked. Pt denies any cardiac hx for herself. no cough. no recent illness. no travel. no leg pain or swelling. REVIEW OF SYSTEMS: Constitutional: No fever, no chills. Eyes: No discharge. ENT: No sore throat. Cardiovascular: + chest pain, no palpitations. Respiratory: No cough, no shortness of breath. Gastrointestinal: No abdominal pain, no vomiting. Genitourinary: No hematuria. Musculoskeletal: No back pain. Skin: No rashes. Neurological: No headache. (JAQUELIN COHN DO) Allergies: Coded Allergies: ampicillin (Verified Allergy, Intermediate, RASH, 07/30/17) Adhesive Bandage (Verified Allergy, Mild, RASH, 07/30/17) Uncoded Allergies: SOME PROBLEM WITH EPINEPHRINE (Adverse Reaction, Unknown, 10/30/13) Home Meds Reported Medications Simvastatin (SIMVASTATIN) 20 Mg Tablet, 20 MG PO HS, TAB 10/05/18 Citalopram Hydrobromide (CELEXA) 20 Mg Tablet, 20 MG PO QDAY, #5 TAB 07/30/17 Meloxicam (MELOXICAM) 7.5 Mg Tablet, 7.5 MG PO QDAY 07/30/17 Cholecalciferol (Vitamin D3) (VITAMIN D-3) 2,000 Unit Capsule, 8000 UNIT PO DAILY, CAPSULE 07/30/17 Discontinued Reported Medications Cetirizine Hcl (ZYRTEC) 10 Mg Tablet, 10 MG PO QDAY, TAB 07/30/17 Past Medical/Surgical History Pmhx: hx of rbbb on prior ekg Pshx: neg (JAQUELIN COHN DO) Reviewed Nurses Notes: Yes Old Medical Records Reviewed: Yes (JAQUELIN COHN DO) Hx Smoking: Yes Smoking Status: Current: Every Day Smoker (1/2 ppd) Hx Substance Use Disorder: No Hx Alcohol Use: Yes (LALIT,JAQUELIN V DO) Constitutional Vital Sign - Last 24 Hours 12/05/18 12/05/18 12/05/18 12/05/18 16:39 16:44 16:45 16:54 Pulse 82 78 68 Resp 24 46 B/P (MAP) 132/85 132/85 (101) Pulse Ox 97 92 O2 Delivery Room Air 12/05/18 12/05/18 12/05/18 12/05/18 17:00 17:09 17:24 17:30 Pulse 75 70 Resp 14 B/P (MAP) 135/76 (95) 127/76 (93) Pulse Ox 93 12/05/18 12/05/18 12/05/18 12/05/18 17:39 17:54 18:00 18:09 Pulse 73 70 72 Resp 20 24 13 B/P (MAP) 132/79 (96) Pulse Ox 92 93 93 12/05/18 12/05/18 12/05/18 12/05/18 18:24 18:30 18:45 19:00 Pulse 69 68 67 65 Resp 16 15 26 8 B/P (MAP) 127/79 (95) 125/75 (92) Pulse Ox 93 93 95 94 12/05/18 12/05/18 12/05/18 12/05/18 19:05 19:25 19:30 19:45 Pulse 69 66 68 Resp 13 13 17 B/P (MAP) 129/78 (95) Pulse Ox 95 94 93 (LUCIE GONZALEZ MD) Physical Exam General Appearance: The patient is alert, has no immediate need for airway protection and no signs of toxicity. Eyes: Pupils equal and round no pallor or injection, EOMI ENT: no pharyngeal erythema or exudates, Mucous membranes are moist Respiratory: There are no retractions, lungs are clear to auscultation. Cardiovascular: Regular rate and rhythm. pulses are equal and symmetrical Gastrointestinal: Abdomen is soft and non tender, no masses, bowel sounds normal, no guarding, no rigidity or rebound Neurological: Cranial nerves II-XII grossly intact, no sensory or motor loss Skin: Warm and dry, no rashes. Musculoskeletal: Neck is supple non tender, no vertebral tenderness Extremities are nontender, nonswollen and have full range of motion. DIFFERENTIAL DIAGNOSIS: After history and physical exam differential diagnosis was considered for acute mi, costochondritis, acs, gerd, pe, pleurisy (LALIT,JAQUELIN V ) Medical Decision Making Data Points Result Diagram: 12/05/18 1645 12/05/18 1645 Laboratory Hematology Test 12/05/18 16:45 12/05/18 19:05 Red Blood Count 4.32 M/uL (4.17-5.56) Mean Corpuscular Volume 96.4 fL (80.0-96.0) Mean Corpuscular Hemoglobin 32.8 pg (26.0-33.0) Mean Corpuscular Hemoglobin Concent 34.0 g/dL (32.0-36.0) Red Cell Distribution Width 13.3 % (11.5-14.5) Mean Platelet Volume 8.5 fL (7.2-11.1) Neutrophils (%) (Auto) 60.9 % (39.4-72.5) Lymphocytes (%) (Auto) 30.7 % (17.6-49.6) Monocytes (%) (Auto) 7.4 % (4.1-12.4) Eosinophils (%) (Auto) 0.6 % (0.4-6.7) Basophils (%) (Auto) 0.4 % (0.3-1.4) Nucleated RBC Relative Count (auto) 0.0 /100WBC Neutrophils # (Auto) 5.0 K/uL (2.0-7.4) Lymphocytes # (Auto) 2.5 K/uL (1.3-3.6) Monocytes # (Auto) 0.6 K/uL (0.3-1.0) Eosinophils # (Auto) 0.0 K/uL (0.0-0.5) Basophils # (Auto) 0.0 K/uL (0.0-0.1) Nucleated RBC Absolute Count (auto) 0.00 K/uL D-Dimer Quantitative (PE/DVT) < 0.27 ug/ml (0-0.50) Sodium Level 138 mmol/L (137-145) Potassium Level 4.1 mmol/L (3.5-5.0) Chloride Level 102 mmol/L (98-107) Carbon Dioxide Level 31 mmol/L (22-31) Blood Urea Nitrogen 19 mg/dl (7-18) Creatinine 0.80 mg/dl (0.52-1.04) Glomerular Filtration Rate Calc > 60.0 Random Glucose 84 mg/dl (75-110) Calcium Level 9.4 mg/dl (8.4-10.2) Total Bilirubin 0.8 mg/dl (0.2-1.3) Aspartate Amino Transf (AST/SGOT) 48 U/L (0-35) Alanine Aminotransferase (ALT/SGPT) 56 U/L (0-56) Alkaline Phosphatase 60 U/L (0-126) Total Protein 7.3 g/dl (6.3-8.2) Albumin 4.9 g/dl (3.5-5.0) Troponin I < 0.012 ng/ml Chemistry Test 12/05/18 16:45 12/05/18 19:05 White Blood Count 8.1 k/uL (4.5-11.0) Red Blood Count 4.32 M/uL (4.17-5.56) Hemoglobin 14.2 g/dL (12.0-16.0) Hematocrit 41.7 % (34.0-47.0) Mean Corpuscular Volume 96.4 fL (80.0-96.0) Mean Corpuscular Hemoglobin 32.8 pg (26.0-33.0) Mean Corpuscular Hemoglobin Concent 34.0 g/dL (32.0-36.0) Red Cell Distribution Width 13.3 % (11.5-14.5) Platelet Count 311 K/uL (150-450) Mean Platelet Volume 8.5 fL (7.2-11.1) Neutrophils (%) (Auto) 60.9 % (39.4-72.5) Lymphocytes (%) (Auto) 30.7 % (17.6-49.6) Monocytes (%) (Auto) 7.4 % (4.1-12.4) Eosinophils (%) (Auto) 0.6 % (0.4-6.7) Basophils (%) (Auto) 0.4 % (0.3-1.4) Nucleated RBC Relative Count (auto) 0.0 /100WBC Neutrophils # (Auto) 5.0 K/uL (2.0-7.4) Lymphocytes # (Auto) 2.5 K/uL (1.3-3.6) Monocytes # (Auto) 0.6 K/uL (0.3-1.0) Eosinophils # (Auto) 0.0 K/uL (0.0-0.5) Basophils # (Auto) 0.0 K/uL (0.0-0.1) Nucleated RBC Absolute Count (auto) 0.00 K/uL D-Dimer Quantitative (PE/DVT) < 0.27 ug/ml (0-0.50) Glomerular Filtration Rate Calc > 60.0 Calcium Level 9.4 mg/dl (8.4-10.2) Total Bilirubin 0.8 mg/dl (0.2-1.3) Aspartate Amino Transf (AST/SGOT) 48 U/L (0-35) Alanine Aminotransferase (ALT/SGPT) 56 U/L (0-56) Alkaline Phosphatase 60 U/L (0-126) Total Protein 7.3 g/dl (6.3-8.2) Albumin 4.9 g/dl (3.5-5.0) Troponin I < 0.012 ng/ml Coagulation Test 12/05/18 16:45 D-Dimer Quantitative (PE/DVT) < 0.27 ug/ml ([facility],LUCIE Magaña MD) EKG/Imaging EKG Interpretation nsr @ 66 with rbbb similar to prior on 09/15/2017 Imaging [facility] (JAQUELIN COHN DO) ED Course/Re-evaluation ED Course Check labs and ekg 12/05/2018 5:28:18 pm Pts first troponin is neg and pt has no ekg changes. Pts pain has been constant since 3pm today. will repeat a second troponin. If negative I suspect pt can go home but will require follow up with pcp for further cardiac testing such as stress test. Pts d-dimer is negative and pt has no pain with inspiration. (JAQUELIN COHN DO) ED Course Discussed with Dr. Cohn at shift change and assumed care. Patient has had several days of sharp chest pain, intermittent, now with a more constant ache. Not short of breath. Nothing makes the pain worse or better. Negative EKG, chest x-ray and initial labs. Repeat troponin was negative. Discussed results with the patient. She will continue her Mobic. Add Zantac or Pepcid. Follow-up already scheduled with Dr. Salcedo to discuss upper GI. She will also schedule with cardiology for stress testing. Decision to Disposition Date: Dec 05, 2018 Decision to Disposition Time: 19:56 (LUCIE GONZALEZ MD) Depart Departure Latest Vital Signs Vital Signs Date Time Temp Pulse Resp B/P (MAP) Pulse Ox O2 Delivery O2 Flow Rate FiO2 12/05/18 19:45 68 17 93 12/05/18 19:30 129/78 (95) 12/05/18 16:44 Room Air (LUCIE GONZALEZ MD) Impression: Primary Impression: Chest pain Condition: Improved Disposition: HOME OR SELF-CARE Referrals: DUARTE AL PA-C (PCP) Patient Instructions: Chest Pain (ED) Additional Instructions: We did not find a cause of your chest pain tonight. Labs did not show any signs of heart attack, blood clots, pulmonary infection or other serious causes. We do recommend further evaluation. Follow-up with Dr. Salcedo for discussion of heart burn and upper GI studies. Start Zantac or Pepcid, both are over the counter and both are taken twice a day. Consider follow-up with a patient resource specialist and discuss doing further studies such as a stress test. Problem Qualifiers Primary Impression: Chest pain Chest pain type: unspecified Qualified Codes: R07.9 - Chest pain, unspecified JAQUELIN COHN DO Dec 05, 2018 17:07 LUCIE GONZALEZ MD Dec 05, 2018 18:42
--- NOTE | 2018-12-05 17:23 | RADIOLOGY IMAGING REPORT ---
FACILITY: [facility] - [place] PATIENT NAME: Jonah Carney : 1955 MR: [id number] V: [id number] EXAM DATE: ORDERING PHYSICIAN: JAQUELIN COHN TECHNOLOGIST: Location: [facility] Patient: Jonah Careny : 1955 Visit/Account:[id number] Date of Sevice: 12/05/2018 EXAMINATION: Chest radiographs 2 views HISTORY: Chest pain. COMPARISON: 09/15/2017. FINDINGS: PA and lateral views of the chest are submitted. Lines/tubes: None. Lungs/pleura: No focal consolidation or pleural effusion. Heart: Negative. Mediastinum: Negative. Bony structures/body wall: Negative. IMPRESSION: No radiographic evidence of acute cardiopulmonary disease. Report Dictated By: Jeannie Del Valle MD at 12/05/2018 5:20 PM Report E-Signed By: Jeannie Del Valle MD at 12/05/2018 5:21 PM WSN:[id number]
--- NOTE | 2018-12-05 17:26 | EKG ---
[facility] PATIENT NAME: FOUZIA ARREGUIN : [id number] MR: [id number] V: [id number] EXAM DATE: ORDERING PHYSICIAN: JAQUELIN COHN TECHNOLOGIST: SWETHA Test Reason : CP Blood Pressure : / mmHG Vent. Rate : 067 BPM Atrial Rate : 067 BPM P-R Int : 182 ms QRS Dur : 122 ms QT Int : 424 ms P-R-T Axes : 076 077 050 degrees QTc Int : 448 ms Normal sinus rhythm Right bundle branch block Abnormal ECG When compared with ECG of 15-SEP-2017 16:54, No significant change was found Confirmed by Levar Gastelum ([id number]) on 12/05/2018 6:21:35 PM Referred By: LALIT Confirmed By:Levar Hartley
[2018-12-05 19:30] VITALS: BP 129/78
== END 2018-12-05 20:08 | disposition home or self-care (01) ==
LOC: ER 16:49
DX: R07.9 Chest pain, unspecified (principal)
CPT/HCPCS: 71046; 82040; 82247; 82310; 82374; 82435; 82565; 82947; 84075; 84132; 84155; 84295; 84450; 84460; 84484; 84520; 85025; 85379; 93005; 99284

== ENCOUNTER 2018-12-23 11:17 | Emergency (ER) | payer BC ==
[~2018-12-23 11:17] MED LIST changes: +CHOL200059 PO; +PHEN30SP NS
--- NOTE | 2018-12-23 11:27 | ER Report ---
History and Physical Time Seen By MD: 11:24 Hx. of Stated Complaint: RECTAL BLEEDING STARTED LAST NIGHT. HAVING SOME ABDOMINAL PRESSURE, NAUSEA VOMITTING HPI/ROS CHIEF COMPLAINT: Abdominal pain and blood in stool HISTORY OF PRESENT ILLNESS: This is a 63-year-old female presents emergency department for abdominal pain and blood in stool. Patient states that she began to have some generalized abdominal pain around 1:00 this morning, then at 4:00 she woke up again went to the bathroom and noted bright red blood in her stool. She has had several episodes since, she also states that she's had some clots in the stool. He continues to have generalized abdominal pain with bloating. She had some chills, no fever. Transient episode of nausea, no vomiting. No dysuria. Lightheadedness, no dizziness. No headaches. No rashes. No recent travel. No unusual food consumption. REVIEW OF SYSTEMS: Constitutional: As above. Eyes: No discharge. ENT: No sore throat. Cardiovascular: No chest pain, no palpitations. Respiratory: No cough, no shortness of breath. Gastrointestinal: As above. Genitourinary: No hematuria. Musculoskeletal: No back pain. Skin: No rashes. Neurological: No headache. Allergies: Coded Allergies: ampicillin (Verified Allergy, Intermediate, RASH, 07/30/17) Adhesive Bandage (Verified Allergy, Mild, RASH, 07/30/17) Uncoded Allergies: SOME PROBLEM WITH EPINEPHRINE (Adverse Reaction, Unknown, 10/30/13) Home Meds Active Scripts Ciprofloxacin 500 Mg Tab (CIPROFLOXACIN 500 MG TAB) 500 Mg Tablet, 500 MG PO Q12H, #14 TAB Prov:JOHN PETERSON [facility]- 12/23/18 Metronidazole (FLAGYL) 500 Mg Tablet, 500 MG PO TID for 7 Days, #21 TAB 0 Refills Prov:JOHN PETERSON [facility]-BC 12/23/18 Reported Medications Phenylephrine Hcl (NASAL SPRAY) Unknown Strength [place], NS QDAY, SPRAY 12/15/18 Cholecalciferol (Vitamin D3) (Vitamin D) 2,000 Unit Tablet, 1 TAB PO QDAY 12/15/18 Simvastatin (SIMVASTATIN) 20 Mg Tablet, 20 MG PO HS, TAB 10/05/18 Citalopram Hydrobromide (CELEXA) 20 Mg Tablet, 20 MG PO QDAY, #5 TAB 07/30/17 Meloxicam (MELOXICAM) 7.5 Mg Tablet, 7.5 MG PO QDAY 07/30/17 Past Medical/Surgical History The patient has a past medical and surgical history of partial blockage of carotid artery on left side, sinus infections, Horton's esophagus, left oophorectomy, right rotator cuff repair, arthritis, herniated disc, family history of glaucoma, anxiety, depression, colonoscopy, EGD, urine ablation, nerve decompression, tonsillectomy. Reviewed Nurses Notes: Yes Hx Smoking: Yes Smoking Status: Current: Every Day Smoker Hx Substance Use Disorder: No Hx Alcohol Use: Yes Constitutional Vital Sign - Last 24 Hours 12/23/18 12/23/18 12/23/18 12/23/18 11:20 11:21 11:30 11:37 Temp 98.2 Pulse 86 82 Resp 14 B/P (MAP) 132/92 (105) 132/92 145/88 (107) 124/78 (93) Pulse Ox 97 O2 Delivery Room Air 12/23/18 12/23/18 12/23/18 12/23/18 11:57 12:17 12:30 12:37 Pulse 85 70 82 B/P (MAP) 128/72 (90) Pulse Ox 97 Physical Exam General Appearance: The patient is alert, has no immediate need for airway protection and no signs of toxicity. Eyes: Pupils equal and round no pallor or injection. ENT, Mouth: Mucous membranes are moist. Respiratory: There are no retractions, lungs are clear to auscultation. Cardiovascular: Regular rate and rhythm, no murmurs, clicks or rubs. Gastrointestinal: Abdomen is soft and non tender, no masses, bowel sounds josesito l. Neurological: Alert and oriented 4. Moving all chambers. Following all commands. No focal neuro deficits. Skin: Warm and dry, no rashes. Musculoskeletal: Neck is supple non tender. Extremities are nontender, nonswollen and have full range of motion. DIFFERENTIAL DIAGNOSIS: After history and physical exam differential diagnosis was considered for abdominal pain including but not limited to appendicitis, cholecystitis, gastritis and urinary tract infection.lower GI bleeding including but not limited to diverticulosis, tumor, AVM, hemorrhoid and anal fissure. Medical Decision Making Data Points Result Diagram: 12/23/18 1155 12/23/18 1155 Laboratory Hematology Test 12/23/18 11:55 12/23/18 12:05 Red Blood Count 4.40 M/uL (4.17-5.56) Mean Corpuscular Volume 96.7 fL (80.0-96.0) Mean Corpuscular Hemoglobin 32.8 pg (26.0-33.0) Mean Corpuscular Hemoglobin Concent 33.9 g/dL (32.0-36.0) Red Cell Distribution Width 13.8 % (11.5-14.5) Mean Platelet Volume 8.8 fL (7.2-11.1) Neutrophils (%) (Auto) 89.0 % (39.4-72.5) Lymphocytes (%) (Auto) 6.0 % (17.6-49.6) Monocytes (%) (Auto) 4.6 % (4.1-12.4) Eosinophils (%) (Auto) 0.2 % (0.4-6.7) Basophils (%) (Auto) 0.2 % (0.3-1.4) Nucleated RBC Relative Count (auto) 0.0 /100WBC Neutrophils # (Auto) 10.5 K/uL (2.0-7.4) Lymphocytes # (Auto) 0.7 K/uL (1.3-3.6) Monocytes # (Auto) 0.5 K/uL (0.3-1.0) Eosinophils # (Auto) 0.0 K/uL (0.0-0.5) Basophils # (Auto) 0.0 K/uL (0.0-0.1) Nucleated RBC Absolute Count (auto) 0.00 K/uL Peripheral Blood Smear No Y/N Prothrombin Time 12.5 seconds (12.0-14.4) Prothromb Time International Ratio 0.94 Activated Partial Thromboplast Time 28 seconds (23-35) Sodium Level 139 mmol/L (137-145) Potassium Level 4.5 mmol/L (3.5-5.0) Chloride Level 105 mmol/L (98-107) Carbon Dioxide Level 26 mmol/L (22-31) Blood Urea Nitrogen 14 mg/dl (7-18) Creatinine 0.70 mg/dl (0.52-1.04) Glomerular Filtration Rate Calc > 60.0 Random Glucose 118 mg/dl (75-110) Calcium Level 9.7 mg/dl (8.4-10.2) Total Bilirubin 0.9 mg/dl (0.2-1.3) Aspartate Amino Transf (AST/SGOT) 50 U/L (0-35) Alanine Aminotransferase (ALT/SGPT) 49 U/L (0-56) Alkaline Phosphatase 72 U/L (0-126) Total Protein 7.3 g/dl (6.3-8.2) Albumin 4.8 g/dl (3.5-5.0) Lipase 139 U/L (23-300) Urine Color Yellow Urine Clarity Slightly-cloudy Urine pH 7.0 pH (4.8-9.5) Urine Specific [place] 1.013 Urine Protein Negative mg/dL (NEGATIVE) Urine Glucose (UA) Negative mg/dL (NEGATIVE) Urine Ketones Negative mg/dL (NEGATIVE) Urine Blood Negative (NEGATIVE) Urine Nitrite Negative (NEGATIVE) Urine Bilirubin Negative (NEGATIVE) Urine Urobilinogen Negative mg/dL (0.2-1.9) Urine Leukocyte Esterase Negative (NEGATIVE) Urine RBC <1 /HPF (0-2/HPF) Urine WBC <1 /HPF (0-5/HPF) Urine Squamous Epithelial Cells Many /LPF (</=FEW) Urine Bacteria Negative /HPF (NONE-FEW) Urine Mucus None /HPF (NONE-FEW) Chemistry Test 12/23/18 11:55 12/23/18 12:05 White Blood Count 11.8 k/uL (4.5-11.0) Red Blood Count 4.40 M/uL (4.17-5.56) Hemoglobin 14.4 g/dL (12.0-16.0) Hematocrit 42.6 % (34.0-47.0) Mean Corpuscular Volume 96.7 fL (80.0-96.0) Mean Corpuscular Hemoglobin 32.8 pg (26.0-33.0) Mean Corpuscular Hemoglobin Concent 33.9 g/dL (32.0-36.0) Red Cell Distribution Width 13.8 % (11.5-14.5) Platelet Count 300 K/uL (150-450) Mean Platelet Volume 8.8 fL (7.2-11.1) Neutrophils (%) (Auto) 89.0 % (39.4-72.5) Lymphocytes (%) (Auto) 6.0 % (17.6-49.6) Monocytes (%) (Auto) 4.6 % (4.1-12.4) Eosinophils (%) (Auto) 0.2 % (0.4-6.7) Basophils (%) (Auto) 0.2 % (0.3-1.4) Nucleated RBC Relative Count (auto) 0.0 /100WBC Neutrophils # (Auto) 10.5 K/uL (2.0-7.4) Lymphocytes # (Auto) 0.7 K/uL (1.3-3.6) Monocytes # (Auto) 0.5 K/uL (0.3-1.0) Eosinophils # (Auto) 0.0 K/uL (0.0-0.5) Basophils # (Auto) 0.0 K/uL (0.0-0.1) Nucleated RBC Absolute Count (auto) 0.00 K/uL Peripheral Blood Smear No Y/N Prothrombin Time 12.5 seconds (12.0-14.4) Prothromb Time International Ratio 0.94 Activated Partial Thromboplast Time 28 seconds (23-35) Glomerular Filtration Rate Calc > 60.0 Calcium Level 9.7 mg/dl (8.4-10.2) Total Bilirubin 0.9 mg/dl (0.2-1.3) Aspartate Amino Transf (AST/SGOT) 50 U/L (0-35) Alanine Aminotransferase (ALT/SGPT) 49 U/L (0-56) Alkaline Phosphatase 72 U/L (0-126) Total Protein 7.3 g/dl (6.3-8.2) Albumin 4.8 g/dl (3.5-5.0) Lipase 139 U/L (23-300) Urine Color Yellow Urine Clarity Slightly-cloudy Urine pH 7.0 pH (4.8-9.5) Urine Specific [place] 1.013 Urine Protein Negative mg/dL (NEGATIVE) Urine Glucose (UA) Negative mg/dL (NEGATIVE) Urine Ketones Negative mg/dL (NEGATIVE) Urine Blood Negative (NEGATIVE) Urine Nitrite Negative (NEGATIVE) Urine Bilirubin Negative (NEGATIVE) Urine Urobilinogen Negative mg/dL (0.2-1.9) Urine Leukocyte Esterase Negative (NEGATIVE) Urine RBC <1 /HPF (0-2/HPF) Urine WBC <1 /HPF (0-5/HPF) Urine Squamous Epithelial Cells Many /LPF (</=FEW) Urine Bacteria Negative /HPF (NONE-FEW) Urine Mucus None /HPF (NONE-FEW) Coagulation Test 12/23/18 11:55 Prothrombin Time 12.5 seconds Prothromb Time International Ratio 0.94 Activated Partial Thromboplast Time 28 seconds Urinalysis Test 12/23/18 12:05 Urine Color Yellow Urine Clarity Slightly-cloudy Urine pH 7.0 pH (4.8-9.5) Urine Specific [place] 1.013 Urine Protein Negative mg/dL (NEGATIVE) Urine Glucose (UA) Negative mg/dL (NEGATIVE) Urine Ketones Negative mg/dL (NEGATIVE) Urine Blood Negative (NEGATIVE) Urine Nitrite Negative (NEGATIVE) Urine Bilirubin Negative (NEGATIVE) Urine Urobilinogen Negative mg/dL (0.2-1.9) Urine Leukocyte Esterase Negative (NEGATIVE) Urine RBC <1 /HPF (0-2/HPF) Urine WBC <1 /HPF (0-5/HPF) Urine Squamous Epithelial Cells Many /LPF (</=FEW) Urine Bacteria Negative /HPF (NONE-FEW) Urine Mucus None /HPF (NONE-FEW) EKG/Imaging Imaging Location: [facility] Patient: Jonah Carney : 1955 Visit[facility]Account:[id number] [facility] abdomen and pelvis with IV contrast Indication: Abdominal pain. Blood in stool. Comparison: None available. . Technique: Axial CT images were obtained through the abdomen and pelvis during injection of nonionic iodinated intravenous contrast. Reformatted coronal and sagittal images were also obtained. One of the following dose optimization techniques was utilized in the perform ance of this exam: Automated exposure control; adjustment of the mA and/or kV according to the patient's size; or use of an iterative reconstruction technique. Specific details can be referenced in the facility's radiology CT exam operational policy. Contrast: 75 ml of Isovue-370 IV contrast. Findings: Lower lung marte: Mild scarring, otherwise clear. Liver: There are couple scattered subcentimeter hypodensities which are too small characterize and statistically tiny cyst. No other focal abnormality. The suture appears to be patent. Biliary: Gallbladder appears unremarkable as well as the intra and extra hepatic biliary system. Pancreas: No focal abnormality. Spleen: Normal appearance. Adrenal glands: Unremarkable. Kidneys / retroperitoneum: No evidence of nephrolithiasis or hydronephrosis. No solid renal lesions. Tiny couple hypodensities seen in the right kidney are likely tiny cysts. Bowel / peritoneum / mesenteries: There are couple diverticula along the sigmoid colon without pericolonic inflammation. There is mild diffuse wall thickening of the descending colon with minimal adjacent stranding. Transverse colon is decompressed but shows no gross abnormality. The ascending colon is unremarkable. The appendix is normal. No free air, free fluid, fluid collections or other areas of inflammation. Lymph node assessment: No pathologic adenopathy identified. Pelvic structures: Pelvic structures visualized within normal limits. The bladder is partially decompressed and shows mild wall thickening likely due to the decompression as there is no focal abnormality or inflammatory changes. Vessels: Mild atherosclerotic calcifications seen throughout a nonaneurysmal abdominal aorta and branches. Musculoskeletal / Body wall: No acute or aggressive osseous abnormality. Lumbar spine does show a leftward convexity and degenerative changes. There is anterior spondylolisthesis of 6 mm of L4 over L5 due to degenerative facet changes. There are a few scattered bone island seen in the bony pelvis. IMPRESSION: 1. There is mild diffuse wall thickening of the descending colon minimal surrounding strandiness. This may be due to early colitis, nonspecific. No focal abnormality. There are couple diverticula along the sigmoid colon without pericolonic inflammation. 2. Other chronic findings as above. Report Dictated By: Gerard Nielson at 12/23/2018 1:00 PM Report E-Signed By: Gerard Nielson at 12/23/2018 1:09 PM WSN:[id number] ED Course/Re-evaluation Clinical Indication for ER IV: Hydration, IV Access ED Course The patient was admitted to room. A history and physical were obtained. Differential diagnoses were considered. An IV was started. A CBC, CMP were obtained.CBC showing white count of 11.8 with left shift, CMP unremarkable, negative UA. A CT of the abdomen and pelvis showing mild diffuse wall thickening of the descending colon minimal surrounding strandiness. This may be due to early colitis, nonspecific. No focal abnormality. There are couple diverticula along the sigmoid colon without pericolonic inflammation. I did review the results with the patient, I did start her on Cipro and Flagyl for colitis. She does have a follow-up appointment scheduled with Dr. Bradley at the end of December, I did talk to the patient about calling Dr. Bradley's office to see if they can reschedule for the patient for an earlier appointment. Patient was given 1 L of normal saline. Patient states she is feeling better after fluids. The patient was agreeable with this plan of care and discharged home. Encouraged her to the ER for any concerns or worsening symptoms. Decision to Disposition Date: Dec 23, 2018 Decision to Disposition Time: 14:05 Depart Departure Latest Vital Signs Vital Signs Date Time Temp Pulse Resp B/P (MAP) Pulse Ox O2 Delivery O2 Flow Rate FiO2 12/23/18 12:37 82 12/23/18 12:30 128/72 (90) 12/23/18 12:17 97 12/23/18 11:21 98.2 14 Room Air Impression: Primary Impression: Colitis Condition: Improved Disposition: HOME OR SELF-CARE Referrals: DUARTE AL PA-C (PCP) CHARLES MELENDREZ MD 10 Days New Scripts Ciprofloxacin 500 Mg Tab (CIPROFLOXACIN 500 MG TAB) 500 Mg Tablet 500 MG PO Q12H, #14 TAB Prov: JOHN PETERSON-THAD 12/23/18 Metronidazole (FLAGYL) 500 Mg Tablet 500 MG PO TID for 7 Days, #21 TAB 0 Refills Prov: JOHN PETERSONP- 12/23/18 Patient Instructions: Infectious Colitis (ED) Additional Instructions: Your lab work looks good today. CT showing colitis, I will treat this as infectious. Please call Dr. Johnson office and let them know you were seen in the ED, see if he can move your appointment up. Drink plenty of water. Get plenty of rest. No alcohol. Avoid NSAIDS for the next 3-5 days. Take Tylenol instead. Return to the ED for any other concerns or worsening symptoms. JOHN PETERSONP- Dec 23, 2018 11:27
[2018-12-23] MEDS ORDERED: NS(*) 0.9% 1000 ML BAG 1,000 ML IV ONE (11:41)
[2018-12-23] MEDS ORDERED: IOPAMIDOL 76% 150 ML INFUS BTL 150 ML ONE (11:56)
[2018-12-23 12:12] LABS: PLATELET COUNT, AUTOMATED 300 K/uL (150-450)
[2018-12-23 12:17] LABS: INR 0.94
[2018-12-23 12:30] VITALS: BP 128/72
--- NOTE | 2018-12-23 13:14 | RADIOLOGY IMAGING REPORT ---
FACILITY: PATIENT NAME: Jonah Carney : 1955 MR: [id number] V: [id number] EXAM DATE: ORDERING PHYSICIAN: JOHN PETERSON TECHNOLOGIST: [place] [facility] [place] : 1955 Visit/Account:[id number] Date of Sevice: 12/23/2018 CT abdomen and pelvis with IV contrast Indication: Abdominal pain. Blood in stool. Comparison: None available. . Technique: Axial CT images were obtained through the abdomen and pelvis during injection of nonioni c iodinated intravenous contrast. Reformatted coronal and sagittal images were also obtained. One of the following dose optimization techniques was utilized in the performance of this exam: Autom ated exposure control; adjustment of the mA and/or kV according to the patient's size; or use of an i terative reconstruction technique. Specific details can be referenced in the facility's radiology C T exam operational policy. Contrast: 75 ml of Isovue-370 IV contrast. Findings: Lower lung marte: Mild scarring, otherwise clear. Liver: There are couple scattered subcentimeter hypodensities which are too small characterize and st atistically tiny cyst. No other focal abnormality. The suture appears to be patent. Biliary: Gallbladder appears unremarkable as well as the intra and extra hepatic biliary system. Pancreas: No focal abnormality. Spleen: Normal appearance. Adrenal glands: Unremarkable. Kidneys / retroperitoneum: No evidence of nephrolithiasis or hydronephrosis. No solid renal lesions. Tiny couple hypodensities seen in the right kidney are likely tiny cysts. Bowel / peritoneum / mesenteries: There are couple diverticula along the sigmoid colon without ira lonic inflammation. There is mild diffuse wall thickening of the descending colon with minimal adjace nt stranding. Transverse colon is decompressed but shows no gross abnormality. The ascending colon is unremarkable. The appendix is normal. No free air, free fluid, fluid collections or other areas of inflammation. Lymph node assessment: No pathologic adenopathy identified. Pelvic structures: Pelvic structures visualized within normal limits. The bladder is partially dec ompressed and shows mild wall thickening likely due to the decompression as there is no focal abnorma lity or inflammatory changes. Vessels: Mild atherosclerotic calcifications seen throughout a nonaneurysmal abdominal aorta and bran ches. Musculoskeletal / Body wall: No acute or aggressive osseous abnormality. Lumbar spine does show a lef tward convexity and degenerative changes. There is anterior spondylolisthesis of 6 mm of L4 over L5 d ue to degenerative facet changes. There are a few scattered bone island seen in the bony pelvis. IMPRESSION: 1. There is mild diffuse wall thickening of the descending colon minimal surrounding strandiness. Thi s may be due to early colitis, nonspecific. No focal abnormality. There are couple diverticula along the sigmoid colon without pericolonic inflammation. 2. Other chronic findings as above. Report Dictated By: Gerard Nielson at 12/23/2018 1:00 PM Report E-Signed By: Gerard Nielson at 12/23/2018 1:09 PM WSN:[id number]
[2018-12-23] MEDS ORDERED: CIPR-214 PO (14:08)
[2018-12-23] MEDS ORDERED: METR-1 PO (14:08)
== END 2018-12-23 14:35 | disposition home or self-care (01) ==
LOC: ER 11:27
DX: K52.9 Noninfective gastroenteritis and colitis, unspecified (principal); K92.1 Melena
CPT/HCPCS: 74177; 81001; 83690; 85025; 85610; 85730; 96360; 99283; J7030; Q9967; 82040; 82247; 82310; 82374; 82435; 82565; 82947; 84075; 84132; 84155; 84295; 84450; 84460; 84520; 99285

== ENCOUNTER → 2019-01-21 | Outpatient (CLI) | payer BC ==
[~2019-01-21] MED LIST changes: +CIPR-214 PO; +METR-1 PO
--- NOTE | 2019-01-27 12:25 | RADIOLOGY IMAGING REPORT ---
FACILITY: [facility] [place] PATIENT NAME: FOUZIA ARREGUIN : [id number] MR: [id number] V: [id number] EXAM DATE: [id number] ORDERING PHYSICIAN: DUARTE AL TECHNOLOGIST: Cole Rivers RDMS, KOLE PROCEDURE:BILATERAL DIAGNOSTIC DIGITAL MAMMOGRAM WITH CAD ASSISTED INTERPRETATION & 3D TOMOSYNTHESIS REASON FOR STUDY: Left breast pain. FAMILY HISTORY OF BREAST CANCER: Maternal aunt. BREAST PROCEDURES/TREATMENTS: Bilateral breast augmentation. COMPARISON STUDIES: Today's Left breast Ultrasound & Prior mammograms 11/19/17, 11/15/17, 10/01/16, 12/21/15, 09/23/14. MAMMOGRAM VIEWS OBTAINED: Bilateral 2D full field non-implant displaced CC & MLO views & Bilateral 2D & 3D implant displaced CC & MLO views in addition to 2D & 3D Spot compression implant displacement views in the Left CC & MLO projections. BREAST DENSITY: The breasts are heterogeneously dense which can obscure small masses. MAMMOGRAM FINDINGS: There appears to be asymmetries both medial and lateral aspect of the Left breast in the anterior depth on the implant displacement views. These are also seen superior and inferior to the mid nipple line in the anterior depth on the Left MLO implant displacement views. There is no evidence of implant rupture or leakage. ULTRASOUND AREA SCANNED: The entire retroareolar portion of the Left breast was scanned. ULTRASOUND FINDINGS: There are numerous dilated ducts in the Left retroareolar periareolar breast measuring up to 5mm in diameter. There is no demonstration of internal mass or debris. The intact Left breast implant is also noted. DIAGNOSTIC CATEGORY 2--BENIGN FINDING. RECOMMENDATIONS: CLINICAL EVALUATION. IMPRESSION: BIRADS 2: Benign finding. There are numerous dilated ducts in the Left retroareolar and periareolar breast which may account for patient's Left breast pain. Clinical follow-up recommended. Dictated by: Lis Carson M.D. on 01/21/2019 at 17:04 Transcribed by: SHARON on 01/22/2019 at 13:45 Approved by: Lis Carson M.D. on 01/27/2019 at 12:24 [facility]
--- NOTE | 2019-01-27 12:25 | RADIOLOGY IMAGING REPORT ---
[place] [facility] [place] NAME: FOUZIA ARREGUIN : [id number] MR: [id number] V: [id number] EXAM DATE: [id number] ORDERING PHYSICIAN: DUARTE AL TECHNOLOGIST: Cole Rivers RDMS, KOLE PROCEDURE:US LEFT BREAST COMPLETE COMPARISON:None. INDICATIONS:LT BREAST PAIN, TENDERNESS, LUMPY ABOVE IMPLANT AREA SCANNED: The entire retroareolar portion of the Left breast was scanned. ULTRASOUND FINDINGS: There are numerous dilated ducts in the Left retroareolar periareolar breast measuring up to 5mm in diameter. There is no demonstration of internal mass or debris. The intact Left breast implant is also noted. DIAGNOSTIC CATEGORY 2--BENIGN FINDING. RECOMMENDATIONS: CLINICAL EVALUATION. IMPRESSION: BIRADS 2: Benign finding. There are numerous dilated ducts in the Left retroareolar and periareolar breast which may account for patient's Left breast pain. Clinical follow-up recommended. Dictated by: Lis Carson M.D. on 01/21/2019 at 17:05 Transcribed by: SHARON on 01/22/2019 at 13:46 Approved by: Lis Carson M.D. on 01/27/2019 at 12:25 [facility]
== END ==
LOC: MAMO 00:52
PROVIDERS: ATTEND Physician Assistant
DX: N64.4 Mastodynia (principal); Z80.3 Family history of malignant neoplasm of breast
CPT/HCPCS: 77062; 77066

== ENCOUNTER 2019-01-28 00:14 | Day surgery (SDC) | payer BC ==
[~2019-01-28] VITALS: Ht 170.2 cm; Wt 59.9 kg
[2019-01-28] MEDS ORDERED: LIDOCAINE/SOD BICARB 8.4% SYR ID ONE (07:45)
[2019-01-28] MEDS ORDERED: NORMOSOL R SOLN(*) 1000 ML BAG 1,000 ML IV PRN (07:45)
[2019-01-28] MEDS ORDERED: GLYCOPYRROLATE 0.2MG/ML 1 ML INJ IVP ONE (07:45)
[2019-01-28] MEDS ORDERED: PROPOFOL EMUL(*) 10MG/ML 20 ML 40 ML ONE (08:16)
[2019-01-28] MEDS ORDERED: LIDOCAINE MPF 1% 5 ML VIAL ONE (08:16)
[2019-01-28] MEDS ORDERED: PROPOFOL EMUL(*) 10MG/ML 20 ML 20 ML ONE (08:17)
[2019-01-28 08:49] VITALS: BP 126/84
[2019-01-28 09:52] VITALS: BP 87/59
[2019-01-28 09:57] VITALS: BP 98/69
[2019-01-28 10:00] VITALS: BP 103/69
--- NOTE | 2019-01-28 10:06 | Short(Outpt) Discharge Summary ---
Discharge Summary Reason for Hosp/Final Diag: (1) History of colon polyps Status: Chronic Hospital Course & Plan: Colonoscopy with colon polyps x2 (removed) completed without problems. (2) Colitis Status: Resolved Hospital Course & Plan: No colitis on colonoscopy (3) Horton's esophagus Status: Chronic Hospital Course & Plan: EGD with biopsies of GE junction completed without problems. Departure Discharge to: Home, Self Care Discharge Instructions Home Meds Reported Medications Phenylephrine Hcl (NASAL SPRAY) Unknown Strength [place], NS QDAY, SPRAY 12/15/18 Simvastatin (SIMVASTATIN) 20 Mg Tablet, 20 MG PO HS, TAB 10/05/18 Citalopram Hydrobromide (CELEXA) 20 Mg Tablet, 20 MG PO QDAY, #5 TAB 07/30/17 Meloxicam (MELOXICAM) 7.5 Mg Tablet, 7.5 MG PO QDAY 07/30/17 Diet: Regular Activity: As Tolerated Special Instructions: Your upper endoscopy was completed without problems. I biopsied the junction of your esophagus and stomach to look for Horton's esophagus. I didn't find anything else of concern in your upper GI tract. I found 2 colon polyps in your colon and they were removed and sent to pathology. I didn't find any active inflammation in your colon. I presume your colitis was infectious and has resolved at this point. My office will call you in the next week or two to let you know the results of the biopsies and what the polyps are but, in any case, your next colonoscopy should be in 5 years due to your previous history of colon polyps. Your next upper endoscopy will be dependent on pathology results and we'll let you know this when we call you. Problem Qualifiers (1) Horton's esophagus: Horton's esophagus type: without dysplasia Qualified Codes: K22.70 - Horton's esophagus without dysplasia CHARLES MELENDREZ MD January 28, 2019 10:06
[2019-01-28 10:19] VITALS: BP 115/86
[2019-01-28 10:22] VITALS: BP 107/93
--- NOTE | 2019-01-28 10:30 | NUR ---
0903 PT ARRIVED TO SD IN L LATERAL POSITION, VSS, LOW BP, BUT OK PER DR. SCHMIDT. PT UNRESPONSIVE 1000 BP IMPROVING, PT STATES SHE NEEDS TO VOID, DECLINES BEDPAN, WILL WAIT UNTIL SAFE TO GET UP AND USE RESTROOM. 1007 DR. MELENDREZ AT BEDSIDE TO DISCUSS FINDINGS WITH PT 1019 ORTHOSTATICS DONE, STABLE, D/C IV FROM TUBING, 150ML UP 1025 PT UP TO VOID WITHOUT DIFFICULTY, BACK TO BED, ATTEMPT TO CONTACT RIDE, NO VOICEMAIL OPTION
--- NOTE | 2019-01-28 13:06 | NUR ---
1030 CALLED ARASH TO GET RODOLFO'S NUMBER, PC TO RODOLFO, NO ANSWER, NO VM 1044 PT TOLERATING CHEESE, CRACKERS, COFFEE, AND ORANGE JUICE 1050 PC TO RODOLFO, NO ANSWER, NO VM 1120 CHECKED WR FRO SON, NO ONE THERE 1200 CALLED ARASH REQUESTING HE CALL AND TEXT RODOL[facility] THAT THEIR MOM IS READY 1215 IV OUT, PRESSURE DRESSING APPLIED, D/C INSTRUCTIONS COVERED, ALL QUESTIONS ANSWERED, REASSESSED, UNREMARKABLE CHANGES 1220 PC TO ARASH TO SEE IF HE HAD HEARD FROM HIS BROTHER, HE HAD NOT, WILL COME GET HIS MOTHER NOW THOUGH, PT REQUESTS MORE COFFEE 1227 Abilio HAIDER RN MET PT'S SON IN [place], WENT OVER D/C INSTRUCTIONS, ALL BELONGINGS WITH PT
== END 2019-01-28 12:25 | disposition home or self-care (01) ==
LOC: OR 00:14
PROVIDERS: ATTEND Surgery
DX: Z12.11 Encounter for screening for malignant neoplasm of colon (principal); K22.70 Barrett's esophagus without dysplasia; K63.5 Polyp of colon; D12.5 Benign neoplasm of sigmoid colon
CPT/HCPCS: 00813; 43239; 45385; 88305; 88313; J2001; J2704; J3490

== ENCOUNTER → 2019-02-20 | Outpatient (CLI) | payer BC | LOC: RAD 01:40 | PROVIDERS: ATTEND Internal Medicine | DX: R07.2 Precordial pain (principal) | CPT/HCPCS: 93306 ==

== ENCOUNTER → 2019-02-27 | Outpatient (CLI) | payer BC ==
--- NOTE | 2019-02-28 10:03 | RADIOLOGY IMAGING REPORT ---
[place]AC[place] [facility] [place] NAME: Jonah Carney : 1955 MR: [id number] V: [id number] EXAM DATE: ORDERING PHYSICIAN: HELDER MILES TECHNOLOGIST: Location: [facility] [place] Patient: Jonah Carney : 1955 Visit/Account:[id number] Date of Sevice: 02/27/2019 EXAMINATION: Single Isotope SPECT Imaging with Exercise and Gated SPECT Imaging DATE OF EXAMINATION: 02/27/2019 DATE OF INTERPRETATION: 02/28/2019 REQUESTING PHYSICIAN: HELDER MILES INDICATION: The patient is a 63-year-old female evaluated for chest pain. PROCEDURE: After informed consent the patient received an intravenous injection of 12.1 mCi of Tc-9 9m sestamibi followed at the appropriate time interval by rest imaging. The patient then exercised a ccording to the standard Pasha protocol for 5:30 minutes achieving 7 METS. Resting heart rate was 66 bpm with a peak heart rate of 141 bpm which is 88 % of maximal predicted heart rate for age. Blood pressure at rest was 125 / 80; blood pressure during exercise was 150 / 72. There was no chest pain during exercise. Exercise was discontinued because of fatigue. Baseline EKG demonstrates sinus rhy thm. There were no EKG changes of ischemia at peak exercise. Approximately one minute and 30 second s prior to the termination of exercise, the patient received an intravenous injection of 28.9 mCi of Tc-99m sestamibi followed by stress imaging. RAW DATA: Examination of the summed raw data revealed a good quality study. MYOCARDIAL PERFUSION: The tomographic images demonstrate normal myocardial perfusion with no evidenc e of infarct or ischemia. There is no TID. GATED IMAGES: The gated images demonstrate hyperdynamic ejection fraction greater than sign 70% with normal wall motion and thickening. IMPRESSION: 1. Normal treadmill ECG 2. Normal myocardial perfusion scan. 3. Hyperdynamic LV systolic function; LVEF >70%. 4. Based on the results of this exam, the patient appears to be at low risk for future cardiovascular events. Report Dictated By: Arnoldo Bray at 02/28/2019 9:53 AM Report E-Signed By: Arnoldo Bray at 02/28/2019 9:56 AM WSN:[id number]
== END ==
LOC: NUC 00:55
PROVIDERS: ATTEND Internal Medicine
DX: R07.2 Precordial pain (principal)
CPT/HCPCS: 78452; 93017; A9500